=== PATIENT | female | born 1945 | race Caucasian/White ===

== ENCOUNTER 2018-08-21 05:28 | Day surgery (SDC) | payer MEDICARE, BC ==
[2018-08-20 11:06] LABS: BASOPHILS # (AUTO) 0.1 X10'3 (0-0.2); BASOPHILS % (AUTO) 1.4 % (0-1); EOSINOPHILS # (AUTO) 0.5 X10'3 (0-0.9); EOSINOPHILS % (AUTO) 5.4 % (0-6); LYMPHOCYTES # (AUTO) 2.3 X10'3 (1.1-4.8); LYMPHOCYTES % (AUTO) 25.5 % (21-51); MEAN CORPUSCULAR HEMOGLOBIN 28.9 PG (27.0-31.0); MEAN CORPUSCULAR HGB CONC 33.8 g/dL (33.0-36.5); MEAN CORPUSCULAR VOLUME 85.6 FL (78-98); MEAN PLATELET VOLUME 8.2 FL (7.4-10.4); MONOCYTES # (AUTO) 0.6 X10'3 (0-0.9); MONOCYTES % (AUTO) 6.1 % (2-12); NEUTROPHILS # (AUTO) 5.6 X10'3 (1.8-7.7); NEUTROPHILS % (AUTO) 61.6 % (42-75); PRE OP HEMATOCRIT 42.9 % (35.0-45.0); PRE OP HEMOGLOBIN 14.5 g/dL (12.0-16.0); PRE OP PLATELET COUNT 337 X10'3 (140-440); RED BLOOD COUNT 5.01 X10'6 (4.20-5.60); RED CELL DISTRIBUTION WIDTH 14.4 % (11.5-14.5)
[2018-08-20 11:17] LABS: ALBUMIN 3.4 G/DL (3.4-5.0); ALBUMIN/GLOBULIN RATIO 0.9 (1.1-1.5); ALKALINE PHOSPHATASE 97 IU/L (46-116); BLOOD UREA NITROGEN 9 MG/DL (7-18); BUN/CREATININE RATIO 15.3 (6.6-38.0); CHLORIDE 102 MMOL/L (99-107); CREATININE 0.59 MG/DL (0.40-0.90); PRE OP ALT 31 U/L (30-65); PRE OP ANION GAP 6 (8-16); PRE OP AST 17 U/L (10-37); PRE OP BILIRUB, TOTAL 0.4 MG/DL (0.0-1.0); PRE OP GLUCOSE 160 MG/DL (70-104); PRE OP POTASSIUM 4.2 MMOL/L (3.4-5.1); PRE OP SODIUM 137 MMOL/L (135-145); TOTAL CARBON DIOXIDE 28.7 MMOL/L (24-32); eGFR > 90 ML/MIN
[2018-08-20 11:39] LABS: PRE OP PARTIAL THROMB. TIME 29 SECONDS (22-32)
[~2018-08-21] VITALS: Ht 170.2 cm; Wt 100.0 kg
[2018-08-21] VITALS (11 sets, daily range): BP systolic 106–154; BP diastolic 48–94
[~2018-08-21 05:28] MED LIST: ATOR40TA PO; DULA1.5P SQ; ESTR10TA VG; EZET10TA13 PO; GLYB5TAB7 PO; METF-436 PO; METO100T7 PO; RIVA20TA PO; ringers solution, lacted 1,000 ML IV SCH
[2018-08-21] MEDS ORDERED: cefazolin/dext.iso 2gm/100 ML IV ONE (05:30)
[2018-08-21] MEDS ORDERED: famotidine 20mg tablet PO ONE (05:30)
[2018-08-21] MEDS ORDERED: DOCUMENT DATE & TIME OF BETA-BLOCKER PO ONE (05:30)
[2018-08-21] MEDS ORDERED: scopolamine 1.5mg patch.TD72 TD ONE (05:30)
[2018-08-21] MEDS ORDERED: LIDOcaine 1% (10mg/ml) 2ml vial ONE (06:01)
[2018-08-21] MEDS ORDERED: LIDOcaine 1% 30ml preserv. free vial ONE ×2 (06:38→07:37)
[2018-08-21] MEDS ORDERED: ROPIVAcaine 0.5% (5mg/ml) 30ml vial ONE ×2 (06:38→07:37)
[2018-08-21] MEDS ORDERED: BUPIVAcaine/PF 2.5 mg/ml (0.25%) 30ml vial ONE ×2 (06:38→07:37)
[2018-08-21] MEDS ORDERED: ketorolac trometh. 30mg/ml inj. ONE ×2 (06:38→07:37)
[2018-08-21] MEDS ORDERED: fentaNYL/PF 50MCG/1 ML 2ML syringe ONE (07:17)
[2018-08-21] MEDS ORDERED: MIDAZolam 5mg/5ml vial ONE (07:17)
[2018-08-21] MEDS ORDERED: dexamethasone sod phosphate 4mg/ml inj. ONE (07:18)
[2018-08-21] MEDS ORDERED: acetaminophen 1,000mg/100ml IV 100 ML IV ONE (07:18)
[2018-08-21] MEDS ORDERED: LIDOcaine 2% (20mg/ml) 5ml vial ONE (07:18)
[2018-08-21] MEDS ORDERED: propofol inj 20 ML IV ONE (07:18)
[2018-08-21] MEDS ORDERED: neostigmine methylsulfate 1 MG/ML 10ml vial ONE (07:19)
[2018-08-21] MEDS ORDERED: ondansetron/PF 4mg/2ml inj ONE (07:19)
[2018-08-21] MEDS ORDERED: rocuronium 10mg/ml inj IV ONE (07:19)
[2018-08-21] MEDS ORDERED: glycopyrrolate 0.2mg/ml inj ONE (07:19)
[2018-08-21] MEDS ORDERED: MIDAZolam 5mg/ml 2ml vial IV PRN (07:20)
[2018-08-21] MEDS ORDERED: ringers solution, lacted 1,000 ML IV SCH (07:23)
[2018-08-21] MEDS ORDERED: morphine 4 MG/ML inj SYRINge IV PRN ×2 (07:25)
[2018-08-21] MEDS ORDERED: labetalol 20mg/4ml (5mg/ml) syringe IV PRN (07:25)
[2018-08-21] MEDS ORDERED: fentaNYL/PF 50MCG/1 ML 2ML syringe IV PRN ×2 (07:25)
[2018-08-21] MEDS ORDERED: ondansetron/PF 4mg/2ml inj IV PRN (07:25)
[2018-08-21] MEDS ORDERED: hydrALAZINE 20mg/ml inj. IV PRN (07:25)
--- NOTE | 2018-08-21 09:25 | NUR ---
Received from OR via BED , accompanied by Anesthesiologist DR BENITEZ and report given by Anesthesiolgist. PATIENT WAKING UP, DENIES PAIN, V/S WNL, NEUROVASCULAR CHECKLS INTACT, 20G PIV TO LUE, SCD ON, BANDAIDS TO LAP SITES OF ABDOMEN CDI. BG 270 ORDERS FOR 6 UNITS REGULAR INSULIN GIVEN
[2018-08-21] MEDS ORDERED: insulin regular, human 10 units/0.1 ml syringe IV ONE (09:40)
[2018-08-21] MEDS ORDERED: oxyCODONE/APAP 5-325mg tablet PO ONE (09:40)
[2018-08-21] MEDS ORDERED: insulin regular, human 10 units/0.1 ml syringe ONE (09:48)
--- NOTE | 2018-08-21 10:45 | NUR ---
PATIENT A&OX4, DENIES PAIN, V/S WNL, NEUROVASCULAR CHECKLS INTACT, 20G PIV TO LUE D/C, SCD OFF, ABD DRESSING CDI, I HAVE REVIEWED D/C INSTRUCTIONS WITH PATIENT AND FAMILY AND THEY HAVE VERBALIZED UNDERSTANDING. PATIENT D/C HOME WITH ALL BELONGINGS AND FAMILY GAVE TRANSPORT HOMEL
== END 2018-08-21 10:45 | disposition home or self-care (01) ==
LOC: PAS 05:28
PROVIDERS: ATTEND Surgery
DX: K42.9 Umbilical hernia without obstruction or gangrene (principal); K66.0 Peritoneal adhesions (postprocedural) (postinfection); I48.91 Unspecified atrial fibrillation; E11.9 Type 2 diabetes mellitus without complications; Z88.8 Allergy status to other drugs, medicaments and biological substances; Z79.899 Other long term (current) drug therapy; Z90.710 Acquired absence of both cervix and uterus; Z98.890 Other specified postprocedural states
CPT/HCPCS: 36415; 49652; 64488; 80053; 82948; 85025; 85610; 85730; 93005; C1781; J0131; J0690; J1100; J1815; J1885; J2001; J2250; J2405; J2704; J2710; J3010; J3490; J7120; J2795